=== PATIENT | male | born 1990 | race African-American/Black ===

== ENCOUNTER 2021-07-22 10:08 | Emergency (ER) | payer BC, MEDICAID ==
[~2021-07-22] VITALS: Ht 177.8 cm; Wt 88.5 kg
[2021-07-22] MEDS ORDERED: TETANUS-DIPTH-ACEL PERTUSSIS 0.5ML SYR Tdap IM ONE (14:00)
[2021-07-22 14:41] VITALS: BP 134/78
== END 2021-07-22 14:54 | disposition home or self-care (01) ==
LOC: ER 10:08
DX: S61.211A Laceration without foreign body of left index finger without damage to nail, initial encounter (principal); W26.0XXA Contact with knife, initial encounter; Y93.89 Activity, other specified; Y92.89 Other specified places as the place of occurrence of the external cause; Y99.8 Other external cause status
CPT/HCPCS: 12001; 90471; 90715